=== PATIENT | female | born 1980 | race Caucasian/White ===

== ENCOUNTER 2016-11-10 16:08 | Emergency (ER) | payer MEDICAID ==
[~2016-11-10] VITALS: Ht 167.6 cm; Wt 86.0 kg
[~2016-11-10 16:08] MED LIST: ACET325T33 PO; IBUP800T25 PO; LABE200T25 PO; PERCOCET PO; PREN1TAB9 PO
[2016-11-10 16:09] VITALS: Ht 167.6 cm; Wt 86.0 kg
[2016-11-10] MEDS ORDERED: KETOROLAC 30 MG INJ IV STA (17:42)
[2016-11-10] MEDS ORDERED: METOCLOPRAMIDE 10 MG INJ IV ONE (18:00)
[2016-11-10] MEDS ORDERED: SOD CHLORIDE 0.9% 1,000 ML IV ONE (18:00)
[2016-11-10] MEDS ORDERED: DIPHENHYDRAMINE 50 MG INJ IV ONE (18:00)
[2016-11-10 18:01] LABS: URINE BLOOD (Dip) POC Negative (NEGATIVE)
[2016-11-10] MEDS ORDERED: NAPR-260 PO (18:15)
[2016-11-10 18:39] VITALS: BP 133/83; PULSE 85; RESP 16
--- NOTE | 2016-11-10 18:40 | ERD ---
ER Documentation Chief Complaint Date/Time DATE: 11/10/16 TIME: 18:38 Chief Complaint GU X 1 WEEK HPI This is a 36-year-old female presents to the ER with a headache for the last week. Headache is located on the right side and is throbbing in quality. She is also complaining of right ear pain. She denies any fever or chills. Patient has been trying to take Tylenol for the headache however it has not worked. Patient has a past medical history of frequent migraine headaches, this is exactly like her normal migraine headaches. She denies any head trauma. She denies any loss of consciousness or weakness. She denies nausea or vomiting. Patient denies any cough or cold symptoms. She denies any nasal discharge. ROS 12 point review of systems was done, all negative except per HPI. Medications Home Meds Active Scripts Naproxen* (Naprosyn*) 500 Mg Tablet, 500 MG PO BID Y for PAIN AND/OR INFLAMMATION, #30 TAB Prov:CAL MCCOY 11/10/16 Ibuprofen* (Motrin*) 800 Mg Tab, 800 MG PO Q6, #30 TAB Prov:AMILCAR COBURN PA-C 05/25/16 Oxycodone Hcl/Acetaminophen (Percocet) 1 Tab Tab, 2 TAB PO Q4H Y for PAIN LEVEL 6-10, #30 TAB 0 Refills Prov:ELISE WALDRON MD 11/23/15 Ibuprofen* (Ibuprofen*) 800 Mg Tab, 800 MG PO Q8, #20 TAB 0 Refills Prov:ELISE WALDRON MD 11/23/15 Acetaminophen* (Tylenol*) 325 Mg Tablet, 1 TAB PO Q6 Y for PAIN AND OR ELEVATED TEMP, #20 TAB Prov:MARIA E CORONEL NP 10/03/15 Reported Medications Labetalol Hcl* (Labetalol Hcl*) 200 Mg Tablet, 200 MG PO BID, TAB 09/15/15 Vits W-Ca,Fe,Fa(<1MG) ( #2) 1 Tab Tablet, 1 TAB PO DAILY 10/28/13 Allergies Allergies: Coded Allergies: No Known Drug Allergy (Verified Allergy, Unknown, 11/21/15) PMhx/Soc History of Surgery: Yes ( X1; TUBAL LIGATION) Anesthesia Reaction: No Hx Neurological Disorder: No Hx Respiratory Disorders: No Hx Cardiac Disorders: Yes (HTN) Hx Psychiatric Problems: No Hx Miscellaneous Medical Probl: No Hx Alcohol Use: No Hx Substance Use: No Hx Tobacco Use: No Smoking Status: Never smoker Physical Exam Vitals Vital Signs Date Time Temp Pulse Resp B/P Pulse Ox O2 Delivery O2 Flow Rate FiO2 11/10/16 16:09 98.6 76 16 146/82 100 Physical Exam GENERAL: The patient is well developed and appropriate for usual state of health , in no apparent distress. HEENT: Atraumatic. Conjunctivae are pink. Pupils equal, round, and reactive to light. Extraocular muscles are grossly intact. Bilateral tympanic membranes are clear with no evidence of erythema, bulging or perforation. No sinus tenderness. NECK: C-spine is soft and supple. There is no cervical lymphadenopathy. CHEST: Clear to auscultation bilaterally. There are no rales, wheezes or rhonchi. HEART: Regular rate and rhythm. No murmurs, clicks, rubs or gallops. EXTREMITIES: Equal pulses bilaterally. There is no peripheral clubbing, cyanosis or edema. No focal swelling or erythema. Full range of motion. Grossly neurovascularly intact. NEURO: Alert and oriented. Cranial nerves II through XII are intact. Motor strength in all 4 extremities with 5/5 strength. Sensation grossly intact. Normal speech and gait. Negative Rhomberg. +2 DTRs. SKIN: There is no apparent rash or petechia. The skin is warm and dry. Results 24 hrs Laboratory Tests Test 11/10/16 18:00 Bedside Urine pH (LAB) 6.5 Bedside Urine Protein (LAB) Negative Bedside Urine Glucose (UA) Negative Bedside Urine Ketones (LAB) Negative Bedside Urine Blood Negative Bedside Urine Nitrite (LAB) Negative Bedside Urine Leukocyte Esterase (L Negative Current Medications Medications (Trade) Dose Ordered Sig/Andrea Route PRN Reason Start Time Stop Time Status Last Admin Dose Admin Ketorolac Tromethamine (Toradol) 30 mg ONCE STAT IV 11/10/16 17:42 11/10/16 17:44 DC 11/10/16 18:09 Diphenhydramine HCl (Benadryl) 25 mg ONCE ONCE IV 11/10/16 18:00 11/10/16 18:01 DC 11/10/16 18:09 Metoclopramide HCl 10 mg 10 mg ONCE ONCE IV 3/25/17 18:00 11/10/16 18:01 DC 11/10/16 18:09 Sodium Chloride (NS) 1,000 ml @ 1,000 mls/hr Q1H ONCE IV 11/10/16 18:00 11/10/16 18:59 11/10/16 18:09 Procedures/MDM Differential Diagnosis includes but is not limited to; tension headache, migraine headache, cluster headache, sinus headache, nonspecific febrile headache, trigeminal neurologia, subdural hematoma, subarachnoid bleeding, meningitis, encephalitis. Patient is neurologically intact with no focal neurological deficits. This is a 36-year-old female presents to the ER with right-sided headache for the last week. Patient was given Toradol, Benadryl, Reglan here in the ER and felt significantly better. Patient states that this is like her other migraine headaches. Suspicion for intracranial pathology is low. Patient will be sent home with proximal and. She is to follow-up with her primary care doctor within 1-2 days or return to ER sooner if symptoms worsen. My medical decision making shared with patient she understands and agrees with plan. Departure Diagnosis: Primary Impression: Migraine Condition: Stable Patient Instructions: Headache, Migraine (Classical) Referrals: SONAM VELASQUEZ (PCP) Additional Instructions: Llame al doctor MAANA y ti mireille TRINA PARA DENTRO DE 1-2 DELUNA.Dgale a la secretaria que nosotros le instruimos hacer esta trina.Avise o llame si mandujano condicin se empeora antes de la trina. Regresa aqui si peor o no mejor. CAL MCCOY Nov 10, 2016 18:40
== END 2016-11-10 18:49 | disposition home or self-care (01) ==
LOC: FTE 16:08
DX: G43.909 Migraine, unspecified, not intractable, without status migrainosus (principal); I10 Essential (primary) hypertension
CPT/HCPCS: 81003; 96374; 96375; J1200; J1885; J2765; J7030; Z7502

== ENCOUNTER 2017-05-28 08:32 | Emergency (ER) | payer MEDICAID ==
[~2017-05-28] VITALS: Ht 157.5 cm; Wt 80.0 kg
[~2017-05-28 08:32] MED LIST changes: +NAPR-260 PO
[2017-05-28 08:34] VITALS: Ht 157.5 cm; Wt 80.0 kg
[2017-05-28] MEDS ORDERED: KETO5DRO79 LEFT EYE (09:24)
--- NOTE | 2017-05-28 09:35 | ERD ---
ER Documentation Chief Complaint Date/Time DATE: 05/28/17 TIME: 09:34 Chief Complaint left eye redness HPI This is a 37-year-old female presenting to emerge department with redness and swelling to left eye. Patient states she woke up this morning and noticed redness and itching to left eye. Patient also noticed a jellylike substance on the surface of her left eyeball near left outer corner. Patient denies wearing glasses or contacts. Patient states she does have some blurry vision to left eye. No loss of vision. No floaters, halos around lights or curtain/veil sensation coming down over eye. Patient states she has had clear tearing however no purulent discharge. No foreign body sensation. No eye pain. No photophobia. ROS All systems reviewed and are negative except as per history of present illness. Medications Home Meds Active Scripts Ketorolac Tromethamine Oph (Ketorolac Tromethamine Oph) 0.4%-5 Ml Opht Drops, 1 DROP LEFT EYE QID for 5 Days, EA Prov:MARIA E CORONEL NP 05/28/17 Naproxen* (Naprosyn*) 500 Mg Tablet, 500 MG PO BID Y for PAIN AND/OR INFLAMMATION, #30 TAB Prov:CAL MCCOY 11/10/16 Ibuprofen* (Motrin*) 800 Mg Tab, 800 MG PO Q6, #30 TAB Prov:AMILCAR COBURN PA-C 05/25/16 Oxycodone Hcl/Acetaminophen (Percocet) 1 Tab Tab, 2 TAB PO Q4H Y for PAIN LEVEL 6-10, #30 TAB 0 Refills Prov:ELISE WALDRON MD 11/23/15 Ibuprofen* (Ibuprofen*) 800 Mg Tab, 800 MG PO Q8, #20 TAB 0 Refills Prov:ELISE WALDRON MD 11/23/15 Acetaminophen* (Tylenol*) 325 Mg Tablet, 1 TAB PO Q6 Y for PAIN AND OR ELEVATED TEMP, #20 TAB Prov:MARIA E CORONEL NP 10/03/15 Reported Medications Labetalol Hcl* (Labetalol Hcl*) 200 Mg Tablet, 200 MG PO BID, TAB 09/15/15 Vits W-Ca,Fe,Fa(<1MG) ( #2) 1 Tab Tablet, 1 TAB PO DAILY 10/28/13 Allergies Allergies: Coded Allergies: No Known Drug Allergy (Verified Allergy, Unknown, 11/21/15) PMhx/Soc History of Surgery: Yes ( X1; TUBAL LIGATION) Anesthesia Reaction: No Hx Neurological Disorder: No Hx Respiratory Disorders: No Hx Cardiac Disorders: Yes (HTN) Hx Psychiatric Problems: No Hx Miscellaneous Medical Probl: No Hx Alcohol Use: No Hx Substance Use: No Hx Tobacco Use: No Smoking Status: Never smoker Physical Exam Vitals Vital Signs Date Time Temp Pulse Resp B/P Pulse Ox O2 Delivery O2 Flow Rate FiO2 05/28/17 08:34 99.0 77 20 185/106 99 Physical Exam Const: No acute distress, alert Head: Atraumatic Eyes: PERRLA, EOMs intact. No proptosis. No purulent discharge. No obvious foreign body. There is a 1-2 mm swelling of conjunctiva beginning in left lateral canthus extending to border of iris. ENT: Normal External Ears, Nose and Mouth. Neck: Full range of motion..~ No meningismus. Resp: Clear to auscultation bilaterally Cardio: Regular rate and rhythm, no murmurs Abd: Soft, non tender, non distended. Normal bowel sounds Skin: No petechiae or rashes Back: No midline or flank tenderness Ext: No cyanosis, or edema Neur: Awake and alert Psych: Normal Mood and Affect Procedures/MDM MDM: This is a 37-year-old female presenting to emerge department with left eye redness, itching and swelling starting earlier today. Patient states he woke up with symptoms. Patient states she does have blurry vision to left eye and feels "the swelling." There is a 1-2 mm swelling of conjunctiva beginning in the left lateral canthus extending medially towards the border of the iris. This is most likely consistent with acute chemosis. Patient is afebrile vital signs are stable. Patient denies foreign body sensation. Patient does not wear contacts. No sick contacts. Patient has history of hypertension and upon assessment patient's blood pressure 185/106 mmHg. Upon reassessment, blood pressure is reduced. Visual acuity 20/50 left, 20/25 right, 20/30 bilateral. No subconjunctival hemorrhage or erythema. No tenderness to palpation. No fevers or chills. PERRLA and EOMs intact on physical exam. No limitation of EOMs on physical exam. No loss of vision, blurry vision, floaters, halos around lights, veil or curtain coming down over eye. Denies photophobia or diplopia. No foreign body sensation to eye. No discharge. No itching or burning. No nasal congestion, sinusitis, cough, shortness breath or difficulty breathing. No facial lesions or rash. There is no pain with eye movement and no proptosis therefore I have low suspicion for orbital cellulitis or periorbital abscess. No rash, burning or lesion therefore I have low suspicion for herpes zoster or varicella. No visual changes, photophobia or loss of vision so I have low suspicion for acute angle closure glaucoma or iritis. Differential diagnosis includes but not limited to chemosis periorbital cellulitis, allergic reaction, insect bite, blepharitis, bacterial conjunctivitis, viral conjunctivitis, allergic conjunctivitis, blepharitis, hordeolum or chalazion. Low suspicion for orbital cellulitis, periorbital abscess, varicella, angle closure glaucoma or iritis. Patient is appropriate for outpatient management and will be given prescription for Toradol ophthalmic solution. Instructed patient to follow up with PCP in the next 2-3 days. May follow-up with [facility] and resources provided. Return to ED for any high fever, chest pain, difficulty breathing, shortness breath, wheezing, vomiting, diarrhea, abdominal pain or any new or worsening symptoms. Patient verbalizes understanding. All questions answered at discharge. Disclaimer: Inadvertent spelling and grammatical errors are likely due to EHR/ dictation software use and do not reflect on the overall quality of patient care. Also, please note that the electronic time recorded on this note does not necessarily reflect the actual time of the patient encounter. Departure Diagnosis: Primary Impression: Chemosis Laterality: left Qualified Code: H11.422 - Chemosis of left conjunctiva Condition: Stable Patient Instructions: Ketorolac Tromethamine Eye drops, solution Referrals: SONAM VELASQUEZ (PCP) [facility] Hours: Mon - Fri 9:00 AM - 5:00 PM Additional Instructions: Follow-up with investigator narcotics if symptoms not improving in the next 1 week. Call your primary care doctor TOMORROW for an appointment during the next 2-3 days.See the doctor sooner or return here if your condition worsens before your appointment time. Return to ED for any high fever, chest pain, difficulty breathing, shortness breath, wheezing, vomiting, diarrhea, abdominal pain or any new or worsening symptoms. MARIA E CORONEL NP May 28, 2017 09:35
== END 2017-05-28 09:55 | disposition home or self-care (01) ==
LOC: FTE 08:32
DX: H11.422 Conjunctival edema, left eye (principal); I10 Essential (primary) hypertension
CPT/HCPCS: 99283